=== PATIENT | female | born 1990 | race Caucasian/White ===

== ENCOUNTER 2021-05-19 02:33 | Emergency (ER) | payer MEDICAID ==
[~2021-05-19] VITALS: Ht 170.2 cm; Wt 136.4 kg
[2021-05-19 02:39] VITALS: BP 172/113
== END 2021-05-19 04:41 | disposition home or self-care (01) ==
LOC: ER 02:35
DX: S93.402A Sprain of unspecified ligament of left ankle, initial encounter (principal); X50.1XXA Overexertion from prolonged static or awkward postures, initial encounter; Y93.89 Activity, other specified; Y92.89 Other specified places as the place of occurrence of the external cause; Y99.8 Other external cause status
CPT/HCPCS: 73610; 99283

== ENCOUNTER 2021-11-15 18:22 | Emergency (ER) | payer MEDICAID ==
[~2021-11-15] VITALS: Ht 170.2 cm; Wt 145.4 kg
[2021-11-15] MEDS ORDERED: ketorolac trometh. 30mg/ml inj. IM ONE (19:25)
[2021-11-15] MEDS ORDERED: orphenadrine citrate 60mg/2ml inj. IM ONE (19:25)
[2021-11-15] MEDS ORDERED: ORPH100T2 PO (19:28)
[2021-11-15] MEDS ORDERED: IBUP-1984 PO (19:28)
[2021-11-15 19:54] VITALS: BP 154/87
== END 2021-11-15 19:55 | disposition home or self-care (01) ==
LOC: ER 18:23
DX: S29.012A Strain of muscle and tendon of back wall of thorax, initial encounter (principal); M54.6 Pain in thoracic spine; Z79.899 Other long term (current) drug therapy; W19.XXXA Unspecified fall, initial encounter; Y93.89 Activity, other specified; Y92.89 Other specified places as the place of occurrence of the external cause; Y99.8 Other external cause status
CPT/HCPCS: 96372; 99284; J1885; J2360

== ENCOUNTER 2022-11-22 15:39 | Emergency (ER) | payer MEDICAID ==
[~2022-11-22] VITALS: Ht 170.2 cm; Wt 163.6 kg
[~2022-11-22 15:39] MED LIST: ORPH100T2 PO
[2022-11-22 15:50] VITALS: BP 180/115
[2022-11-22] MEDS ORDERED: diazepam 5mg tablet PO ONE (17:55)
[2022-11-22] MEDS ORDERED: ORPH100T2 PO (18:20)
[2022-11-22] MEDS ORDERED: orphenadrine citrate 60mg/2ml inj. IM ONE (18:30)
[2022-11-22] MEDS ORDERED: HYDROcodone/acetaminophen 10/325mg tab PO ONE (19:15)
[2022-11-22] MEDS ORDERED: ketorolac trometh inj. 60 MG/2 ML VIAL IM ONE (19:45)
[2022-11-22] MEDS ORDERED: acetaminophen 325mg tablet PO ONE (19:45)
[2022-11-22] MEDS ORDERED: HYDR-3965 PO (20:50)
== END 2022-11-22 20:20 | disposition home or self-care (01) ==
LOC: ER 15:39
DX: M62.830 Muscle spasm of back (principal); Z79.899 Other long term (current) drug therapy
CPT/HCPCS: 20552; 96372; 99284; J1885; J2360

== ENCOUNTER 2023-12-22 08:53 | Emergency (ER) | payer MEDICAID ==
[~2023-12-22] VITALS: Ht 170.2 cm; Wt 167.3 kg
[~2023-12-22 08:53] MED LIST changes: -ORPH100T2 PO; +ORPH100T4 PO
[2023-12-22 09:23] VITALS: TEMP 98.7
[2023-12-22] MEDS: ondansetron 4mg rapidly disintigrating tab PO ONE (09:23)
[2023-12-22 09:25] LABS: BILIRUBIN,URINE NEGATIVE (Neg); CLARITY,URINE CLOUDY (Clear); COLOR,URINE YELLOW (Yellow); GLUCOSE, URINE NEGATIVE (Neg); KETONES,URINE NEGATIVE (Neg); LEUKOCYTE ESTERASE ,URINE TRACE (Neg); NITRITES, URINE NEGATIVE (Neg); OCCULT BLOOD,URINE LARGE (Neg); PROTEIN,URINE NEGATIVE (Neg); UROBILINOGEN,URINE 0.2 E.U/dL (0.2-1.0)
[2023-12-22 09:30] LABS: BASOPHILS % (AUTO) 0.4 % (0-1); EOSINOPHILS # (AUTO) 0.4 X10'3 (0-0.9); HEMATOCRIT 43.2 % (35.0-45.0); HEMOGLOBIN 14.4 g/dl (12.0-16.0); LYMPHOCYTES # (AUTO) 2.7 X10'3 (1.1-4.8); LYMPHOCYTES % (AUTO) 24.3 % (21-51); MEAN CORPUSCULAR HEMOGLOBIN 27.8 PG (27.0-31.0); MEAN CORPUSCULAR HGB CONC 33.2 g/dL (33.0-36.5); MEAN CORPUSCULAR VOLUME 83.5 FL (78-98); MEAN PLATELET VOLUME 7.1 FL (7.4-10.4); MONOCYTES # (AUTO) 0.6 X10'3 (0-0.9); MONOCYTES % (AUTO) 5.3 % (2-12); NEUTROPHILS # (AUTO) 7.3 X10'3 (1.8-7.7); PLATELET COUNT 279 X10'3 (140-440); RED BLOOD COUNT 5.18 X10'6 (4.20-5.60); RED CELL DISTRIBUTION WIDTH 15.1 % (11.5-14.5); WHITE BLOOD COUNT 11.1 X10'3 (4.5-11.0)
[2023-12-22 09:31] LABS: UA COLLECTION TYPE CLN CATCH MIDSTREAM
[2023-12-22 09:33] LABS: RBC,URINE TNTC /HPF (0-2)
[2023-12-22 09:34] LABS: BACTERIA,URINE 3+ /HPF (Neg); MUCUS STRANDS FEW /LPF (Neg)
[2023-12-22 09:35] LABS: SQUAMOUS EPITHELIAL CELL,UR MODERATE /LPF (FEW)
[2023-12-22 09:48] LABS: ALANINE AMINOTRANSFERASE 29 U/L (12-78); ALBUMIN 3.7 G/DL (3.4-5.0); ALBUMIN/GLOBULIN RATIO 0.9 (1.1-1.5); ALKALINE PHOSPHATASE 87 IU/L (46-116); ANION GAP 11 (8-16); ASPARTATE AMINO TRANSFERASE 22 U/L (10-37); BILIRUBIN,DIRECT 0.1 MG/DL (0-0.3); BILIRUBIN,TOTAL 0.5 MG/DL (0.1-1.0); BLOOD UREA NITROGEN 10 MG/DL (7-18); BUN/CREATININE RATIO 11.9 (10.0-20.0); CALCIUM 8.7 MG/DL (8.5-10.1); CHLORIDE 103 MMOL/L (99-107); CREATININE 0.84 MG/DL (0.40-0.90); GLUCOSE 92 MG/DL (70-104); LIPASE 32 U/L (16-77); POTASSIUM 3.7 MMOL/L (3.5-5.1); SODIUM 138 MMOL/L (135-145); TOTAL CARBON DIOXIDE 23.7 MMOL/L (24-32); TOTAL PROTEIN 7.8 G/DL (6.4-8.2); eCRCL 94 ML/MIN; eGFR 79 ML/MIN
[2023-12-22 10:06] LABS: HCG SERUM QL NEGATIVE
[2023-12-22] MEDS: normal saline 1000ML IV soln IVB ONE (10:07)
[2023-12-22] MEDS: ketorolac tromethamine 15mg/ml inj. IV ONE (10:17)
[2023-12-22] MEDS: CefTRIAXone 2gm/D5W 50ml BAG 50 ML IV SCH (10:55)
[2023-12-22] MEDS ORDERED: ONDA4TAB12 PO (11:22)
[2023-12-22] MEDS ORDERED: SULF1TAB49 PO (11:22)
[2023-12-22] MEDS ORDERED: IBUP-1986 PO (11:22)
[2023-12-22 11:32] VITALS: BP 148/95; PULSE 89; RESP 16; O2SAT 95
== END 2023-12-22 11:36 | disposition home or self-care (01) ==
LOC: ER 08:53
DX: N39.0 Urinary tract infection, site not specified (principal); R11.2 Nausea with vomiting, unspecified; M54.9 Dorsalgia, unspecified; Z79.1 Long term (current) use of non-steroidal anti-inflammatories (NSAID)
CPT/HCPCS: 36415; 74176; 80048; 80076; 81001; 83690; 84703; 85025; 87088; 96361; 96365; 96375; 99285; J0696; J1885; J7030

== ENCOUNTER 2024-05-23 20:17 | Emergency (ER) | payer MEDICAID ==
[~2024-05-23] VITALS: Ht 170.2 cm; Wt 168.2 kg
[~2024-05-23 20:17] MED LIST changes: +IBUP-1986 PO; +ONDA-243 PO
[2024-05-23 20:53] LABS: BASOPHILS % (AUTO) 0.5 % (0-1); EOSINOPHILS # (AUTO) 0.1 X10'3 (0-0.9); EOSINOPHILS % (AUTO) 1.2 % (0-6); HEMATOCRIT 41.1 % (35.0-45.0); HEMOGLOBIN 13.6 g/dl (12.0-16.0); LYMPHOCYTES # (AUTO) 1.8 X10'3 (1.1-4.8); LYMPHOCYTES % (AUTO) 18.1 % (21-51); MEAN CORPUSCULAR HEMOGLOBIN 27.5 PG (27.0-31.0); MEAN CORPUSCULAR HGB CONC 33.1 g/dL (33.0-36.5); MEAN PLATELET VOLUME 7.2 FL (7.4-10.4); MONOCYTES # (AUTO) 0.5 X10'3 (0-0.9); MONOCYTES % (AUTO) 5.3 % (2-12); NEUTROPHILS # (AUTO) 7.5 X10'3 (1.8-7.7); NEUTROPHILS % (AUTO) 74.9 % (42-75); PLATELET COUNT 241 X10'3 (140-440); RED BLOOD COUNT 4.95 X10'6 (4.20-5.60); RED CELL DISTRIBUTION WIDTH 14.8 % (11.5-14.5)
[2024-05-23] MEDS ORDERED: potassium bicarbonate/cit acid 25mEq tablet.effervescent PO SCH (21:02)
[2024-05-23 21:12] LABS: ALBUMIN 3.2 G/DL (3.4-5.0); ANION GAP 9 (8-16); BLOOD UREA NITROGEN 9 MG/DL (7-18); BUN/CREATININE RATIO 11.4 (10.0-20.0); CALCIUM 8.6 MG/DL (8.5-10.1); CHLORIDE 104 MMOL/L (99-107); CREATININE 0.79 MG/DL (0.40-0.90); GLUCOSE 106 MG/DL (70-104); POTASSIUM 3.9 MMOL/L (3.5-5.1); SODIUM 137 MMOL/L (135-145); TOTAL CARBON DIOXIDE 23.7 MMOL/L (24-32); eCRCL 100 ML/MIN; eGFR 85 ML/MIN
[2024-05-23 21:17] LABS: BILIRUBIN,URINE NEGATIVE (Neg); CLARITY,URINE CLEAR (Clear); COLOR,URINE YELLOW (Yellow); GLUCOSE, URINE NEGATIVE (Neg); KETONES,URINE NEGATIVE (Neg); LEUKOCYTE ESTERASE ,URINE SMALL (Neg); NITRITES, URINE NEGATIVE (Neg); OCCULT BLOOD,URINE NEGATIVE (Neg); PROTEIN,URINE NEGATIVE (Neg)
[2024-05-23 21:25] LABS: UA COLLECTION TYPE CLN CATCH MIDSTREAM
[2024-05-23 21:27] LABS: BACTERIA,URINE 4+ /HPF (Neg); RBC,URINE NONE SEEN /HPF (0-2)
[2024-05-23 21:28] LABS: SQUAMOUS EPITHELIAL CELL,UR MANY /LPF (FEW)
[2024-05-23 22:05] VITALS: BP 136/75; TEMP 97.9
[2024-05-23] MEDS: amox tr/potassium clavulanate 875/125mg TAB PO ONE (22:38)
[2024-05-23] MEDS: racepinephrine 11.25mg/0.5ml nebule IH ONE (22:39)
[2024-05-23 22:41] VITALS: PULSE 87; RESP 16; O2SAT 98
[2024-05-23 22:54] VITALS: PULSE 89; RESP 18; O2SAT 98
[2024-05-23] MEDS ORDERED: SUCR1ORA12 PO (23:32)
[2024-05-23] MEDS ORDERED: AMOX-117 PO (23:32)
== END 2024-05-24 01:13 | disposition home or self-care (01) ==
LOC: ER 20:18
DX: J02.8 Acute pharyngitis due to other specified organisms (principal); L08.89 Other specified local infections of the skin and subcutaneous tissue; Z79.2 Long term (current) use of antibiotics; Z79.1 Long term (current) use of non-steroidal anti-inflammatories (NSAID); Z79.899 Other long term (current) drug therapy
CPT/HCPCS: 36415; 71045; 80048; 81001; 83605; 84145; 85025; 87040; 87088; 93005; 94640; 94760; 99285